=== PATIENT | male | born 1940 | race Caucasian/White ===

== ENCOUNTER 2021-10-16 11:01 | Emergency (ER) | payer OTHER, MEDICARE ==
[2021-10-16 11:08] VITALS: TEMP 98.2; BMI 20.2
[2021-10-16] MEDS ORDERED: MAG HYDROX/AL HYDROX/SIMETH 30 ML UNIT-DOSE CUP PO ONE (12:23)
[2021-10-16] MEDS ORDERED: MAG HYDROX/AL HYDROX/SIMETH -MYLANTA- ORAL SUSPENSION PO ONE (12:23)
[2021-10-16] MEDS ORDERED: ACETAMINOPHEN 1000 MG/100 ML BAG IVPB ONE (12:23)
[2021-10-16] MEDS ORDERED: LIDOCAINE VISCOUS 2% ORAL/TOP 15 ML UNIT-DOSE CUP MM ONE (12:23)
[2021-10-16] MEDS ORDERED: FAMOTIDINE 20 MG/50 ML IVPB 20 MG/50 ML MG IVPB ONE (12:24)
[2021-10-16] MEDS ORDERED: MAG HYDROX/AL HYDROX/SIMETH 30 ML UNIT-DOSE CUP ONE (12:31)
[2021-10-16 12:53] LABS: BASO % 0.6 % (0-2.0); EOS % 6.6 % (0-4.5); HEMATOCRIT 41.6 % (35.4-49); LYMPH % 21.1 % (8-40); MCH 30.6 pg (25.7-33.7); MCHC 33.7 g/dl (32.0-35.9); MEAN CELL VOLUME 90.9 fl (80-96); MEAN PLT VOLUME 8.7 fl (7.5-11.1); MONO % 10.3 % (3.8-10.2); NEUT % 61.4 % (42.8-82.8); PLATELET COUNT 178 10^3/uL (134-434); RBC 4.57 M/mm3 (4.00-5.60); WHITE BLOOD COUNT 7.8 K/mm3 (4.0-10.0)
[2021-10-16 12:58] LABS: INR 1.13 (0.83-1.09)
[2021-10-16 13:01] LABS: ACTIVATED PTT 32.7 SECONDS (25.2-36.5)
[2021-10-16 13:04] LABS: BLOOD UREA NITROGEN 22.6 mg/dL (7-18); CALCIUM 8.6 mg/dL (8.5-10.1)
[2021-10-16 13:05] LABS: ALBUMIN 3.8 g/dl (3.4-5.0)
[2021-10-16 13:09] LABS: BILIRUBIN,TOTAL 0.7 mg/dL (0.2-1); CREATININE 1.4 mg/dL (0.55-1.3); TOT PROT 7.5 g/dl (6.4-8.2)
[2021-10-16 13:13] LABS: N-TERMINAL BNP 155.4 pg/ml (5-450)
[2021-10-16 14:51] VITALS: BP 135/56; PULSE 61
[2021-10-17 12:08] LABS: SARS-CoV-2 NAA Not Detected (Not Detected)
== END 2021-10-16 15:08 | disposition left against medical advice (07) ==
LOC: JER 11:01
PROC: 3E0333Z Introduction of Anti-inflammatory into Peripheral Vein, Percutaneous Approach (ICD-10-PCS; principal; 2021-10-16)
PROC: 3E033GC Introduction of Other Therapeutic Substance into Peripheral Vein, Percutaneous Approach (ICD-10-PCS; 2021-10-16)
DX: R07.89 Other chest pain (principal)
CPT/HCPCS: 36415; 71046-TC-FY; 80053; 83880; 84484; 85025; 85610; 85730; 93005; 93010; 96374; 96375; 99285-25; C9803; U0003; U0005

== ENCOUNTER 2022-10-22 11:26 | Inpatient (IN) | payer OTHER, MEDICARE ==
[2022-10-22] MEDS ORDERED: METOCLOPRAMIDE HCL INJECTION 10 MG/2 ML VIAL IVPUSH ONE (13:15)
[2022-10-22] MEDS ORDERED: SODIUM CHLORIDE 0.9% 1000 ML INFUS.BAG IV ONE (13:15)
[2022-10-22] MEDS ORDERED: ACETAMINOPHEN 1000 MG/100 ML BAG IVPB ONE (13:15)
[2022-10-22] MEDS ORDERED: METOCLOPRAMIDE HCL INJECTION 10 MG/2 ML VIAL ONE (13:20)
[2022-10-22] MEDS ORDERED: ACETAMINOPHEN INJECTION 100 ML IVPB ONE (13:20)
[2022-10-22 13:29] LABS: HEMATOCRIT 40.1 % (35.4-49); MCH 31.8 pg (25.7-33.7); MEAN CELL VOLUME 90.9 fl (80-96); MEAN PLT VOLUME 8.8 fl (7.5-11.1); PLATELET COUNT 136.2 10^3/uL (134-434); RBC 4.41 10^6/uL (4.00-5.60); RDW 13.5 % (11.9-15.9); WHITE BLOOD COUNT 10.6 10^3/uL (4.0-10.8)
[2022-10-22 13:33] LABS: INR 1.28 (0.83-1.09); PROTHROMBIN TIME (PATIENT) 14.8 SEC (9.7-13.0)
[2022-10-22 13:36] LABS: ACTIVATED PTT 34.3 SECONDS (25.2-36.5)
[2022-10-22 13:40] LABS: ALBUMIN 4.2 g/dl (3.4-5.0); BILIRUBIN,TOTAL 1.1 mg/dl (0.2-1); CALCIUM 8.8 mg/dl (8.5-10); CREATININE 1.4 mg/dl (0.55-1.3); TOT PROT 7.5 g/dl (6.4-8.2)
[2022-10-22 15:46] LABS: PLATELET ESTIMATE ADEQUATE
[2022-10-22] MEDS: HEPARIN NA (PORCINE) 5,000 UNITS/ML 1ML VIAL SQ SCH (21:41)
[2022-10-22] MEDS: ROSUVASTATIN CA 20 MG TABLET PO SCH (21:41)
[2022-10-23] MEDS ORDERED: guaiFENesin/D-METHORPHAN HB 10 ML UNIT-DOSE CUPS PO PRN (02:48)
[2022-10-23] MEDS ORDERED: ALBUTEROL SO4 HFA INHALER IH PRN (06:54)
[2022-10-23 08:41] LABS: CALCIUM 7.8 mg/dl (8.5-10); CREATININE 1.3 mg/dl (0.55-1.3)
[2022-10-23] MEDS ORDERED: REMDESIVIR 200 MG in SODIUM CHLORIDE 250 ML IVPB ONE (09:00)
[2022-10-23 09:24] VITALS: RESP 18
[2022-10-23] MEDS: HEPARIN NA (PORCINE) 5,000 UNITS/ML 1ML VIAL SQ SCH ×2 (09:35→21:18)
[2022-10-23] MEDS: SERTRALINE HCL 25 MG TABLET (FP) PO SCH (09:36)
[2022-10-23] MEDS: FUROSEMIDE 20 MG TABLET (FP) PO SCH (09:36)
[2022-10-23 09:55] LABS: HEMATOCRIT 35.3 % (35.4-49); HEMOGLOBIN 11.8 GM/dL (11.7-16.9); MCH 30.4 pg (25.7-33.7); MCHC 33.5 g/dl (32.0-35.9); MEAN CELL VOLUME 90.7 fl (80-96); MEAN PLT VOLUME 9.6 fl (7.5-11.1); PLATELET COUNT 133 10^3/uL (134-434); RBC 3.89 M/mm3 (4.00-5.60); RDW 13.2 % (11.9-15.9); WHITE BLOOD COUNT 6.3 K/mm3 (4.0-10.0)
[2022-10-23 11:38] LABS: ANISOCYTOSIS 0; HELMET CELLS 0; HOWELL-JOLLY BODIES 0; MACROCYTOSIS 0; OVALOCYTE 0; ROULEAU 0; SICKELED CELLS 0; TARGET CELLS 0; TEAR DROP CELLS 0; TOXIC GRANULATION 0
[2022-10-23 19:16] LABS: N-TERMINAL BNP 698.8 pg/ml (5-450)
[2022-10-23] MEDS: ROSUVASTATIN CA 20 MG TABLET PO SCH (21:18)
[2022-10-24 08:04] LABS: ALBUMIN 3.4 g/dl (3.4-5.0); BILIRUBIN,TOTAL 0.6 mg/dl (0.2-1); CALCIUM 8.3 mg/dl (8.5-10); CREATININE 1.1 mg/dl (0.55-1.3); PHOSPHOROUS 2.9 mg/dl (2.5-4.9); TOT PROT 6.4 g/dl (6.4-8.2)
[2022-10-24 09:35] LABS: BASO % 0.6 % (0-2.0); EOS % 8.3 % (0-4.5); HEMATOCRIT 38.8 % (35.4-49); HEMOGLOBIN 12.8 GM/dL (11.7-16.9); LYMPH % 24.8 % (8-40); MCHC 33.1 g/dl (32.0-35.9); MEAN CELL VOLUME 90.6 fl (80-96); MEAN PLT VOLUME 9.4 fl (7.5-11.1); MONO % 12.6 % (3.8-10.2); NEUT % 53.7 % (42.8-82.8); PLATELET COUNT 162 10^3/uL (134-434); RBC 4.28 M/mm3 (4.00-5.60); RDW 13.2 % (11.9-15.9); WHITE BLOOD COUNT 5.1 K/mm3 (4.0-10.0)
[2022-10-24] MEDS: SERTRALINE HCL 25 MG TABLET (FP) PO SCH (09:41)
[2022-10-24] MEDS: FUROSEMIDE 20 MG TABLET (FP) PO SCH (09:41)
[2022-10-24] MEDS: HEPARIN NA (PORCINE) 5,000 UNITS/ML 1ML VIAL SQ SCH ×2 (09:42→22:07)
[2022-10-24] MEDS: REMDESIVIR 100 MG in SODIUM CHLORIDE 250 ML IVPB SCH (10:44)
[2022-10-24 16:35] VITALS: BMI 21.0
[2022-10-24] MEDS: ROSUVASTATIN CA 20 MG TABLET PO SCH (22:07)
[2022-10-25 06:57] VITALS: BP 151/67; PULSE 67; TEMP 97.7
[2022-10-25 08:01] LABS: ALBUMIN 3.7 g/dl (3.4-5.0); BILIRUBIN,TOTAL 0.6 mg/dl (0.2-1); CALCIUM 8.8 mg/dl (8.5-10); CREATININE 1.1 mg/dl (0.55-1.3); PHOSPHOROUS 2.9 mg/dl (2.5-4.9); TOT PROT 6.8 g/dl (6.4-8.2)
[2022-10-25] MEDS: REMDESIVIR 100 MG in SODIUM CHLORIDE 250 ML IVPB SCH (09:44)
[2022-10-25] MEDS: FUROSEMIDE 20 MG TABLET (FP) PO SCH (09:46)
[2022-10-25] MEDS: SERTRALINE HCL 25 MG TABLET (FP) PO SCH (09:46)
[2022-10-25] MEDS: HEPARIN NA (PORCINE) 5,000 UNITS/ML 1ML VIAL SQ SCH (09:47)
[2022-10-25 10:32] LABS: BASO % 0.6 % (0-2.0); EOS % 7.8 % (0-4.5); HEMATOCRIT 40.7 % (35.4-49); HEMOGLOBIN 13.4 GM/dL (11.7-16.9); LYMPH % 29.6 % (8-40); MEAN CELL VOLUME 90.9 fl (80-96); MEAN PLT VOLUME 9.1 fl (7.5-11.1); MONO % 11.3 % (3.8-10.2); NEUT % 50.7 % (42.8-82.8); PLATELET COUNT 204 10^3/uL (134-434); RBC 4.47 M/mm3 (4.00-5.60); RDW 13.7 % (11.9-15.9); WHITE BLOOD COUNT 5.2 K/mm3 (4.0-10.0)
== END 2022-10-25 14:19 | disposition home or self-care (01) | DRG 179 ==
LOC: FER 11:26 → FM/S 16:04 → OBSVTOIN 10-24 11:26
PROVIDERS: ADMIT Internal Medicine; ATTEND Internal Medicine
PROC: XW033E5 Introduction of Remdesivir Anti-infective into Peripheral Vein, Percutaneous Approach, New Technology Group 5 (ICD-10-PCS; principal; 2022-10-24)
DX: U07.1 COVID-19 (principal); I25.10 Atherosclerotic heart disease of native coronary artery without angina pectoris; E78.5 Hyperlipidemia, unspecified; I44.0 Atrioventricular block, first degree; I12.9 Hypertensive chronic kidney disease with stage 1 through stage 4 chronic kidney disease, or unspecified chronic kidney disease; N18.9 Chronic kidney disease, unspecified; M54.2 Cervicalgia; D64.9 Anemia, unspecified; Z95.5 Presence of coronary angioplasty implant and graft
CPT/HCPCS: 0241U-QW; 36415; 70450-TC; 71045-TC-FY; 72125-TC; 80048; 80053; 80061; 81003; 81015; 83036; 83735; 83880; 84100; 84439; 84443; 84484; 85025; 85027; 85610; 85730; 87086; 93005; 97116-GP; 97162-GP; 99285-25; C9399; G0378; J1644